=== PATIENT | female | born 2000 | race Caucasian/White ===

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

== ENCOUNTER 2021-01-20 09:44 | Outpatient (REF) | payer MEDICAID, SELFPAY ==
--- NOTE | ~2021-01-20 | US_ITS ---
EXAMINATION: OBSTETRICAL ULTRASOUND, Follow up HISTORY: 20-year-old at the 28.4 weeks of gestation Single umbilical artery COMPARISON: 12/16/2020 TECHNIQUE: Real time transabdominal imaging with color and M-mode Doppler. PRESENTATION: Breech PLACENTA LOCATION: Anterior without previa AMNIOTIC FLUID: Within normal limits MEASUREMENTS: 1. Biparietal Diameter: 7.3 cm; 29.2 wks 2. Head Circumference: 27.8 cm; 30.4 wks 3. Abdominal Circumference: 23.1 cm; 27.4 wks 4. Femur Length: 5.1 cm; 27.4 wks 5. Heart Rate: 136 beats per minute WEIGHT: EFW: 1136 grams (2 lbs 8 oz) -- 15 %. Two-vessel cord. UA Doppler S/D: 2.6 GESTATIONAL AGE: 1. Established GA: 28.4 wks 2. GA from [facility]: 19.6 wks ESTIMATED DATE OF DELIVERY: 1. Established SANDRINE: 04/10/2021 2. SANDRINE from [facility]: 04/08/2021 US/US OB velocimetry umbilical ar IMPRESSION: 1. A single active fetus is in vertex presentation 2. Two-vessel cord 3. Size equals dates, EFW corresponds to 15th percentile. There has been the slightly less than expected interval growth. 4. Normal amniotic fluid index 5. Normal UA Doppler study. I reviewed today's findings and the informed her that there has been slightly less than expected interval growth. Reviewed the limitations of ultrasound and estimating weights. Because of increased the incidence of IUGR in the setting of two-vessel cord, a follow-up in approximately 4 weeks is recommended (scheduled). Thank you very much for this referral. Total time 30 minutes. The time spent was devoted to counseling the patient about the disease and diagnosis, coordinating care including reviewing her records, pertinent lab data and studies, as well as discussing diagnostic evaluation and workup, plan therapeutic interventions and future disposition of care. This includes any additional research needed to obtain further information in formulating the plan of care of this patient. This note was generated with a voice recognition program. Please excuse any errors which may have been overlooked during my review of this note. Sometimes these errors may affect the content or meaning of a given sentence.
--- NOTE | ~2021-01-20 | US_ITS ---
EXAMINATION: OBSTETRICAL ULTRASOUND, Follow up HISTORY: 20-year-old at the 28.4 weeks of gestation Single umbilical artery COMPARISON: 12/16/2020 TECHNIQUE: Real time transabdominal imaging with color and M-mode Doppler. PRESENTATION: Breech PLACENTA LOCATION: Anterior without previa AMNIOTIC FLUID: Within normal limits MEASUREMENTS: 1. Biparietal Diameter: 7.3 cm; 29.2 wks 2. Head Circumference: 27.8 cm; 30.4 wks 3. Abdominal Circumference: 23.1 cm; 27.4 wks 4. Femur Length: 5.1 cm; 27.4 wks 5. Heart Rate: 136 beats per minute WEIGHT: EFW: 1136 grams (2 lbs 8 oz) -- 15 %. Two-vessel cord. UA Doppler S/D: 2.6 GESTATIONAL AGE: 1. Established GA: 28.4 wks 2. GA from [facility]: 19.6 wks ESTIMATED DATE OF DELIVERY: 1. Established SANDRINE: 04/10/2021 2. SANDRINE from [facility]: 04/08/2021 US/US OB follow up IMPRESSION: 1. A single active fetus is in vertex presentation 2. Two-vessel cord 3. Size equals dates, EFW corresponds to 15th percentile. There has been the slightly less than expected interval growth. 4. Normal amniotic fluid index 5. Normal UA Doppler study. I reviewed today's findings and the informed her that there has been slightly less than expected interval growth. Reviewed the limitations of ultrasound and estimating weights. Because of increased the incidence of IUGR in the setting of two-vessel cord, a follow-up in approximately 4 weeks is recommended (scheduled). Thank you very much for this referral. Total time 30 minutes. The time spent was devoted to counseling the patient about the disease and diagnosis, coordinating care including reviewing her records, pertinent lab data and studies, as well as discussing diagnostic evaluation and workup, plan therapeutic interventions and future disposition of care. This includes any additional research needed to obtain further information in formulating the plan of care of this patient. This note was generated with a voice recognition program. Please excuse any errors which may have been overlooked during my review of this note. Sometimes these errors may affect the content or meaning of a given sentence.
== END 2021-01-20 09:45 | disposition home or self-care (01) ==
LOC: HO.US 09:44
PROVIDERS: Visit Provider Advanced Practice Midwife
DX: O26.893 Other specified pregnancy related conditions, third trimester (principal); Q27.0 Congenital absence and hypoplasia of umbilical artery; Z3A.28 28 weeks gestation of pregnancy
CPT/HCPCS: 76816; 76820

== ENCOUNTER → 2021-02-01 15:17 | Outpatient (BNVA) | payer MEDICAID, SELFPAY | PROVIDERS: Visit Provider Advanced Practice Midwife | DX: Z34.03 Encounter for supervision of normal first pregnancy, third trimester (principal); Z3A.30 30 weeks gestation of pregnancy; Q27.0 Congenital absence and hypoplasia of umbilical artery | CPT/HCPCS: 81003; 99212 ==

== ENCOUNTER 2021-02-17 11:35 | Outpatient (REF) | payer MEDICAID, SELFPAY ==
--- NOTE | ~2021-02-17 | US_ITS ---
EXAMINATION: OBSTETRICAL ULTRASOUND, Follow up HISTORY: A 20-year-old at the 32.4 weeks of gestation Size less than dates Two-vessel cord COMPARISON: 01/20/2021 TECHNIQUE: Real time transabdominal imaging with color and M-mode Doppler. PRESENTATION: Vertex PLACENTA LOCATION: Anterior without previa AMNIOTIC FLUID: OZIEL 13.9 cm MEASUREMENTS: 1. Biparietal Diameter: 8.5 cm; 34.1 wks 2. Head Circumference: 32.0 cm; 36.1 wks 3. Abdominal Circumference: 26.7 cm; 30.6 wks 4. Femur Length: 5.7 cm; 29.6 wks 5. Heart Rate: 142 beats per minute WEIGHT: EFW: 1728 grams (3 lbs 13 oz) -- 10 %. BIOPHYSICAL PROFILE: Motion: 2 Tone: 2 Breathin Amniotic Fluid: 2 Total score: 8/8 Two-vessel cord was noted. The views of the posterior fossa, lateral ventricles, four-chamber view of the heart, stomach, bladder and kidneys were within normal limits. UA Doppler: SD 2.4 GESTATIONAL AGE: 1. Established GA: 32.4 wks 2. GA from [facility]: 32.6 wks ESTIMATED DATE OF DELIVERY: 1. Established SANDRINE: 04/10/2021 2. SANDRINE from [facility]: 04/08/2021 US/US OB follow up IMPRESSION: 1. A single active fetus is in vertex presentation 2. Size equals dates, EFW corresponds to 10th percentile. Compared to prior exam, there has been slightly less than expected interval growth 3. Two-vessel cord 4. Reassuring biophysical profile with normal amniotic fluid volume 5. Normal SD ratio in the umbilical artery I reviewed today's findings and informed her that there has been the slightly less than expected interval growth. We discussed the limitations of ultrasound and estimating weights. At this time it is unclear if the fetus is constitutionally small but healthy and is growing to her full genetic potential or is being affected by the two-vessel cord. The surveillance is reassuring. Recommended beginning weekly BPP, NST and Doppler evaluation. Repeat growth in 2 weeks. Thank you very much for this referral. Total time 30 minutes. The time spent was devoted to counseling the patient about the disease and diagnosis, coordinating care including reviewing her records, pertinent lab data and studies, as well as discussing diagnostic evaluation and workup, plan therapeutic interventions and future disposition of care. This includes any additional research needed to obtain further information in formulating the plan of care of this patient. This note was generated with a voice recognition program. Please excuse any errors which may have been overlooked during my review of this note. Sometimes these errors may affect the content or meaning of a given sentence.
--- NOTE | ~2021-02-17 | US_ITS ---
EXAMINATION: OBSTETRICAL ULTRASOUND, Follow up HISTORY: A 20-year-old at the 32.4 weeks of gestation Size less than dates Two-vessel cord COMPARISON: 01/20/2021 TECHNIQUE: Real time transabdominal imaging with color and M-mode Doppler. PRESENTATION: Vertex PLACENTA LOCATION: Anterior without previa AMNIOTIC FLUID: OZIEL 13.9 cm MEASUREMENTS: 1. Biparietal Diameter: 8.5 cm; 34.1 wks 2. Head Circumference: 32.0 cm; 36.1 wks 3. Abdominal Circumference: 26.7 cm; 30.6 wks 4. Femur Length: 5.7 cm; 29.6 wks 5. Heart Rate: 142 beats per minute WEIGHT: EFW: 1728 grams (3 lbs 13 oz) -- 10 %. BIOPHYSICAL PROFILE: Motion: 2 Tone: 2 Breathin Amniotic Fluid: 2 Total score: 8/8 Two-vessel cord was noted. The views of the posterior fossa, lateral ventricles, four-chamber view of the heart, stomach, bladder and kidneys were within normal limits. UA Doppler: SD 2.4 GESTATIONAL AGE: 1. Established GA: 32.4 wks 2. GA from A: 32.6 wks ESTIMATED DATE OF DELIVERY: 1. Established SANDRINE: 04/10/2021 2. SANDRINE from [facility]: 04/08/2021 US/US OB velocimetry umbilical ar IMPRESSION: 1. A single active fetus is in vertex presentation 2. Size equals dates, EFW corresponds to 10th percentile. Compared to prior exam, there has been slightly less than expected interval growth 3. Two-vessel cord 4. Reassuring biophysical profile with normal amniotic fluid volume 5. Normal SD ratio in the umbilical artery I reviewed today's findings and informed her that there has been the slightly less than expected interval growth. We discussed the limitations of ultrasound and estimating weights. At this time it is unclear if the fetus is constitutionally small but healthy and is growing to her full genetic potential or is being affected by the two-vessel cord. The surveillance is reassuring. Recommended beginning weekly BPP, NST and Doppler evaluation. Repeat growth in 2 weeks. Thank you very much for this referral. Total time 30 minutes. The time spent was devoted to counseling the patient about the disease and diagnosis, coordinating care including reviewing her records, pertinent lab data and studies, as well as discussing diagnostic evaluation and workup, plan therapeutic interventions and future disposition of care. This includes any additional research needed to obtain further information in formulating the plan of care of this patient. This note was generated with a voice recognition program. Please excuse any errors which may have been overlooked during my review of this note. Sometimes these errors may affect the content or meaning of a given sentence.
[2021-02-17 14:23] LABS: Hematocrit 32.4 % (37-47); Hemoglobin 10.4 g/dl (12.0-16.0); Mean Corpuscular HGB Conc 32.1 g/dl (31.0-35.0); Mean Corpuscular Hemoglobin 26.2 pg (27.0-33.0); Mean Corpuscular Volume 81.6 fL (80-98); Mean Platelet Volume 10.2 fL (9.4-12.3); Platelet Count 202 X10*3/uL (160-400); Red Blood Count 3.97 X10*6/uL (4.20-5.50); Red Cell Distribution Width 12.3 % (11.0-16.0); White Blood Count 10.6 X10*3/uL (4.8-10.8)
[2021-02-17 14:41] LABS: Glucose 1 Hour PP 50gm Dose 156 mg/dL (60-140)
[2021-02-20 09:30] LABS: Syphilis Screen Nonreactive (Nonreactive)
== END 2021-02-17 11:36 | disposition home or self-care (01) ==
LOC: HO.US 11:35
PROVIDERS: Advanced Practice Midwife; Visit Provider Advanced Practice Midwife
DX: O99.013 Anemia complicating pregnancy, third trimester (principal); O26.893 Other specified pregnancy related conditions, third trimester; Q27.0 Congenital absence and hypoplasia of umbilical artery; Z3A.32 32 weeks gestation of pregnancy
CPT/HCPCS: 36415; 76816; 76820; 81003; 85027; 86780; 99212

== ENCOUNTER 2021-02-24 11:22 | Outpatient (REF) | payer MEDICAID, SELFPAY ==
--- NOTE | ~2021-02-24 | US_ITS ---
EXAMINATION: US OBSTETRICAL (BIOPHYSICAL PROFILE) CLINICAL INFORMATION: 20-year-old at 33.4 weeks of gestation Two-vessel cord FGR COMPARISON: 02/17/2021 TECHNIQUE: Biophysical profile is performed over 30 minutes with assessment of breathing, gross body movement, tone, and qualitative amniotic fluid volume. FINDINGS: POSITION: Cephalic PLACENTA: Anterior without previa AMNIOTIC FLUID INDEX: 16.1 cm CARDIAC ACTIVITY: 130 beats per minute BIOPHYSICAL PROFILE: Motion: 2 Tone: 2 Breathin Amniotic Fluid: 2 The total biophysical score is 8/8 UA Doppler showed SD ratio of 2.1. This is within normal limits and stable. US/US OB biophysical profile IMPRESSION: 1. Single intrauterine gestation in vertex position. 2. Reassuring BPP and OZIEL 3. Normal SD ratio in the umbilical artery. Thank you for allowing me to participate in her care. Continue weekly monitoring. This note was generated with a voice recognition program. Please excuse any errors which may have been overlooked during my review of this note. Sometimes these errors may affect the content or meaning of a given sentence.
--- NOTE | ~2021-02-24 | US_ITS ---
EXAMINATION: US OBSTETRICAL (BIOPHYSICAL PROFILE) CLINICAL INFORMATION: 20-year-old at 33.4 weeks of gestation Two-vessel cord FGR COMPARISON: 02/17/2021 TECHNIQUE: Biophysical profile is performed over 30 minutes with assessment of breathing, gross body movement, tone, and qualitative amniotic fluid volume. FINDINGS: POSITION: Cephalic PLACENTA: Anterior without previa AMNIOTIC FLUID INDEX: 16.1 cm CARDIAC ACTIVITY: 130 beats per minute BIOPHYSICAL PROFILE: Motion: 2 Tone: 2 Breathin Amniotic Fluid: 2 The total biophysical score is 8/8 UA Doppler showed SD ratio of 2.1. This is within normal limits and stable. US/US OB velocimetry umbilical ar IMPRESSION: 1. Single intrauterine gestation in vertex position. 2. Reassuring BPP and OZIEL 3. Normal SD ratio in the umbilical artery. Thank you for allowing me to participate in her care. Continue weekly monitoring. This note was generated with a voice recognition program. Please excuse any errors which may have been overlooked during my review of this note. Sometimes these errors may affect the content or meaning of a given sentence.
== END 2021-02-24 11:23 | disposition home or self-care (01) ==
LOC: HO.US 11:22
PROVIDERS: Visit Provider Advanced Practice Midwife
DX: O99.013 Anemia complicating pregnancy, third trimester (principal); O99.810 Abnormal glucose complicating pregnancy; O26.893 Other specified pregnancy related conditions, third trimester; Z3A.33 33 weeks gestation of pregnancy
CPT/HCPCS: 76819; 76820

== ENCOUNTER → 2021-03-01 11:48 | Outpatient (BNVA) | payer MEDICAID, SELFPAY | PROVIDERS: Visit Provider Advanced Practice Midwife | DX: O36.5930 Maternal care for other known or suspected poor fetal growth, third trimester, not applicable or unspecified (principal); Z3A.34 34 weeks gestation of pregnancy | CPT/HCPCS: 59025; 81003; 99212 ==

== ENCOUNTER 2021-03-03 11:40 | Outpatient (REF) | payer MEDICAID, SELFPAY ==
--- NOTE | ~2021-03-03 | US_ITS ---
EXAMINATION: OBSTETRICAL ULTRASOUND, Follow up HISTORY: 20-year-old at 34.2 weeks of gestation Size less than dates Two-vessel cord COMPARISON: 02/24/2021 TECHNIQUE: Real time transabdominal imaging with color and M-mode Doppler. PRESENTATION: Vertex PLACENTA LOCATION: Anterior without previa AMNIOTIC FLUID: OZIEL 13.0 cm MEASUREMENTS: 1. Biparietal Diameter: 8.7 cm; 35.3 wks 2. Head Circumference: 31.9 cm; 36.0 wks 3. Abdominal Circumference: 28.7 cm; 32.6 wks 4. Femur Length: 6.3 cm; 32.4 wks 5. Heart Rate: 155 beats per minute Two-vessel cord was again noted. The views of the posterior fossa, lateral ventricles, four-chamber view of the heart, stomach, bladder, kidneys are within normal limits. WEIGHT: EFW: 2142 grams (4 lbs 12 oz) -- 13 %. BIOPHYSICAL PROFILE: Motion: 2 Tone: 2 Breathin Amniotic Fluid: 2 Total score: 8/8 UA Doppler showed S/D ratio of 2.0 GESTATIONAL AGE: 1. Established GA: 34.2 wks 2. GA from [facility]: 34.2 wks ESTIMATED DATE OF DELIVERY: 1. Established SANDRINE: 04/10/2021 2. SANDRINE from [facility]: 04/12/2021 US/US OB velocimetry umbilical ar IMPRESSION: 1. A single active fetus is in vertex presentation 2. Size equals dates, EFW corresponds to 13th percentile. However compared to prior exam, this represents an appropriate interval growth 3. Two-vessel cord 4. Reassuring biophysical profile with normal amniotic fluid index 5. Normal SD ratio in the umbilical artery She had a prolonged NST on Saturday for intermittent variable decelerations. According to her, she was monitored for nearly 4 hours at the [facility]. She is to continue weekly NST and BPP as well as Doppler evaluation. In addition, she was advised to monitor kick counts. Thank you very much for this referral. Total time 30 minutes. The time spent was devoted to counseling the patient about the disease and diagnosis, coordinating care including reviewing her records, pertinent lab data and studies, as well as discussing diagnostic evaluation and workup, plan therapeutic interventions and future disposition of care. This includes any additional research needed to obtain further information in formulating the plan of care of this patient. This note was generated with a voice recognition program. Please excuse any errors which may have been overlooked during my review of this note. Sometimes these errors may affect the content or meaning of a given sentence.
--- NOTE | ~2021-03-03 | US_ITS ---
EXAMINATION: OBSTETRICAL ULTRASOUND, Follow up HISTORY: 20-year-old at 34.2 weeks of gestation Size less than dates Two-vessel cord COMPARISON: 02/24/2021 TECHNIQUE: Real time transabdominal imaging with color and M-mode Doppler. PRESENTATION: Vertex PLACENTA LOCATION: Anterior without previa AMNIOTIC FLUID: OZIEL 13.0 cm MEASUREMENTS: 1. Biparietal Diameter: 8.7 cm; 35.3 wks 2. Head Circumference: 31.9 cm; 36.0 wks 3. Abdominal Circumference: 28.7 cm; 32.6 wks 4. Femur Length: 6.3 cm; 32.4 wks 5. Heart Rate: 155 beats per minute Two-vessel cord was again noted. The views of the posterior fossa, lateral ventricles, four-chamber view of the heart, stomach, bladder, kidneys are within normal limits. WEIGHT: EFW: 2142 grams (4 lbs 12 oz) -- 13 %. BIOPHYSICAL PROFILE: Motion: 2 Tone: 2 Breathin Amniotic Fluid: 2 Total score: 8/8 UA Doppler showed S/D ratio of 2.0 GESTATIONAL AGE: 1. Established GA: 34.2 wks 2. GA from AUA: 34.2 wks ESTIMATED DATE OF DELIVERY: 1. Established SANDRINE: 04/10/2021 2. SANDRINE from [facility]: 04/12/2021 US/US OB follow up IMPRESSION: 1. A single active fetus is in vertex presentation 2. Size equals dates, EFW corresponds to 13th percentile. However compared to prior exam, this represents an appropriate interval growth 3. Two-vessel cord 4. Reassuring biophysical profile with normal amniotic fluid index 5. Normal SD ratio in the umbilical artery She had a prolonged NST on Saturday for intermittent variable decelerations. According to her, she was monitored for nearly 4 hours at the [facility]. She is to continue weekly NST and BPP as well as Doppler evaluation. In addition, she was advised to monitor kick counts. Thank you very much for this referral. Total time 30 minutes. The time spent was devoted to counseling the patient about the disease and diagnosis, coordinating care including reviewing her records, pertinent lab data and studies, as well as discussing diagnostic evaluation and workup, plan therapeutic interventions and future disposition of care. This includes any additional research needed to obtain further information in formulating the plan of care of this patient. This note was generated with a voice recognition program. Please excuse any errors which may have been overlooked during my review of this note. Sometimes these errors may affect the content or meaning of a given sentence.
== END 2021-03-03 11:41 | disposition home or self-care (01) ==
LOC: HO.US 11:40
PROVIDERS: Visit Provider Advanced Practice Midwife
DX: O99.019 Anemia complicating pregnancy, unspecified trimester (principal); O99.810 Abnormal glucose complicating pregnancy; Z3A.00 Weeks of gestation of pregnancy not specified
CPT/HCPCS: 76816; 76820

== ENCOUNTER 2021-03-06 11:54 | Outpatient (REF) | payer MEDICAID, SELFPAY ==
[2021-03-06 13:26] LABS: Glucose 1 Hour 128 mg/dL
[2021-03-06 15:04] LABS: Glucose 2 Hour 131 mg/dL
[2021-03-06 15:53] LABS: Glucose 3 Hour 110 mg/dL
[2021-03-06 17:52] LABS: Glucose Fasting 88 mg/dL (60-99)
== END 2021-03-06 11:55 | disposition home or self-care (01) ==
LOC: HO.LAB 11:54
PROVIDERS: Visit Provider Advanced Practice Midwife
DX: O99.019 Anemia complicating pregnancy, unspecified trimester (principal); O26.899 Other specified pregnancy related conditions, unspecified trimester; O99.810 Abnormal glucose complicating pregnancy; Q27.0 Congenital absence and hypoplasia of umbilical artery
CPT/HCPCS: 36415; 82951

== ENCOUNTER → 2021-03-07 13:14 | Outpatient (BNVA) | payer MEDICAID, SELFPAY | PROVIDERS: Visit Provider Advanced Practice Midwife | DX: O69.89X0 Labor and delivery complicated by other cord complications, not applicable or unspecified (principal); O36.5930 Maternal care for other known or suspected poor fetal growth, third trimester, not applicable or unspecified; Q27.0 Congenital absence and hypoplasia of umbilical artery; O99.810 Abnormal glucose complicating pregnancy; O99.013 Anemia complicating pregnancy, third trimester; D64.9 Anemia, unspecified; O36.8330 Maternal care for abnormalities of the fetal heart rate or rhythm, third trimester, not applicable or unspecified; Z3A.35 35 weeks gestation of pregnancy | CPT/HCPCS: 59025; 81003; 99212 ==

== ENCOUNTER 2021-03-16 13:17 | Outpatient (REF) | payer MEDICAID, SELFPAY ==
[2021-03-17 04:30] LABS: CT PCR NOT DETECTED (Not Detect.); NG PCR NOT DETECTED (Not Detect.)
== END 2021-03-16 13:18 | disposition home or self-care (01) ==
LOC: HO.LAB 13:17
PROVIDERS: Visit Provider Advanced Practice Midwife
DX: O36.5930 Maternal care for other known or suspected poor fetal growth, third trimester, not applicable or unspecified (principal); O47.00 False labor before 37 completed weeks of gestation, unspecified trimester
CPT/HCPCS: 59025; 87081; 87147; 87491; 87591; 99212

== ENCOUNTER 2021-03-24 09:10 | Outpatient (REF) | payer MEDICAID, SELFPAY ==
--- NOTE | ~2021-03-24 | US_ITS ---
EXAMINATION: OBSTETRICAL ULTRASOUND, Follow up HISTORY: 21-year-old at the 37.4 weeks of gestation Two-vessel cord Small for gestational COMPARISON: 03/03/2021 TECHNIQUE: Real time transabdominal imaging with color and M-mode Doppler. PRESENTATION: Vertex PLACENTA LOCATION: Anterior without previa AMNIOTIC FLUID: OZIEL 8.8 cm MEASUREMENTS: 1. Biparietal Diameter: 9.2 cm; 37.2 wks 2. Head Circumference: 33.6 cm; 38.4 wks 3. Abdominal Circumference: 31.0 cm; 35.0 wks 4. Femur Length: 6.7 cm; 34.3 wks 5. Heart Rate: 134 beats per minute WEIGHT: EFW: 2663 grams (5 lbs 14 oz) -- 11 %. Two-vessel cord is noted. Posterior fossa, lateral ventricles, four-chamber view of the heart, stomach, urinary bladder and kidneys are within normal limits. BIOPHYSICAL PROFILE: Motion: 2 Tone: 2 Breathin Amniotic Fluid: 2 Total score: 8/8 UA Doppler: SD 2.4 GESTATIONAL AGE: 1. Established GA: 37.4 wks 2. GA from AUA: 36.3 wks ESTIMATED DATE OF DELIVERY: 1. Established SANDRINE: 04/10/2021 2. SANDRINE from AUA: 04/18/2021 US/US OB velocimetry umbilical ar IMPRESSION: 1. A single active fetus is in vertex presentation 2. Size equals dates, EFW corresponds to 11 percentile. Compared to prior, this represents appropriate interval growth. 3. Reassuring BPP and the OZIEL 4. Normal SD on UA Doppler I reviewed today's findings and gave her reassurance. Even though the EFW still corresponds to 11 percentile, this represents an appropriate interval growth. testing as well as the UA Doppler were within normal limits. Given today's findings, suggest continuing expectant management until approximately 39 weeks of gestation. Thank you very much for this referral. Total time 30 minutes. The time spent was devoted to counseling the patient about the disease and diagnosis, coordinating care including reviewing her records, pertinent lab data and studies, as well as discussing diagnostic evaluation and workup, plan therapeutic interventions and future disposition of care. This includes any additional research needed to obtain further information in formulating the plan of care of this patient. This note was generated with a voice recognition program. Please excuse any errors which may have been overlooked during my review of this note. Sometimes these errors may affect the content or meaning of a given sentence.
== END 2021-03-24 09:11 | disposition home or self-care (01) ==
LOC: HO.US 09:10
PROVIDERS: Visit Provider Advanced Practice Midwife
DX: O36.5990 Maternal care for other known or suspected poor fetal growth, unspecified trimester, not applicable or unspecified (principal); O26.899 Other specified pregnancy related conditions, unspecified trimester; Q27.0 Congenital absence and hypoplasia of umbilical artery
CPT/HCPCS: 76816; 76820

== ENCOUNTER 2021-03-31 09:03 | Outpatient (REF) | payer MEDICAID, SELFPAY ==
--- NOTE | ~2021-03-31 | US_ITS ---
EXAMINATION: US OBSTETRICAL (BIOPHYSICAL PROFILE) CLINICAL INFORMATION: 21-year-old at 38.4 weeks of gestation Two-vessel cord Small for gestational age COMPARISON: 03/24/2021 TECHNIQUE: Biophysical profile is performed over 30 minutes with assessment of breathing, gross body movement, tone, and qualitative amniotic fluid volume. FINDINGS: POSITION: Cephalic PLACENTA: Anterior without previa AMNIOTIC FLUID INDEX: 5.9 cm, MVP 4.5 cm CARDIAC ACTIVITY: 133 beats per minute BIOPHYSICAL PROFILE: Motion: 2 Tone: 2 Breathin Amniotic Fluid: 2 The total biophysical score is 8/8 UA Doppler: S/D 1.9 US/US OB biophysical profile IMPRESSION: 1. Single intrauterine gestation in vertex position. 2. Reassuring BPP and OZIEL 3. Normal SD ratio in the umbilical artery I reviewed today's findings and gave her reassurance. Agree with current plan of induction of labor at approximately 39 weeks of gestation. Thank you for allowing me to participate in her care. Total time 20 minutes. The time spent was devoted to counseling the patient about the disease and diagnosis, coordinating care including reviewing her records, pertinent lab data and studies, as well as discussing diagnostic evaluation and workup, plan therapeutic interventions and future disposition of care. This includes any additional research needed to obtain further information in formulating the plan of care of this patient. This note was generated with a voice recognition program. Please excuse any errors which may have been overlooked during my review of this note. Sometimes these errors may affect the content or meaning of a given sentence.
--- NOTE | ~2021-03-31 | US_ITS ---
EXAMINATION: US OBSTETRICAL (BIOPHYSICAL PROFILE) CLINICAL INFORMATION: 21-year-old at 38.4 weeks of gestation Two-vessel cord Small for gestational age COMPARISON: 03/24/2021 TECHNIQUE: Biophysical profile is performed over 30 minutes with assessment of breathing, gross body movement, tone, and qualitative amniotic fluid volume. FINDINGS: POSITION: Cephalic PLACENTA: Anterior without previa AMNIOTIC FLUID INDEX: 5.9 cm, MVP 4.5 cm CARDIAC ACTIVITY: 133 beats per minute BIOPHYSICAL PROFILE: Motion: 2 Tone: 2 Breathin Amniotic Fluid: 2 The total biophysical score is 8/8 UA Doppler: S/D 1.9 US/US OB velocimetry umbilical ar IMPRESSION: 1. Single intrauterine gestation in vertex position. 2. Reassuring BPP and OZIEL 3. Normal SD ratio in the umbilical artery I reviewed today's findings and gave her reassurance. Agree with current plan of induction of labor at approximately 39 weeks of gestation. Thank you for allowing me to participate in her care. Total time 20 minutes. The time spent was devoted to counseling the patient about the disease and diagnosis, coordinating care including reviewing her records, pertinent lab data and studies, as well as discussing diagnostic evaluation and workup, plan therapeutic interventions and future disposition of care. This includes any additional research needed to obtain further information in formulating the plan of care of this patient. This note was generated with a voice recognition program. Please excuse any errors which may have been overlooked during my review of this note. Sometimes these errors may affect the content or meaning of a given sentence.
== END 2021-03-31 09:04 | disposition home or self-care (01) ==
LOC: HO.US 09:03
PROVIDERS: Visit Provider Advanced Practice Midwife
DX: O36.5930 Maternal care for other known or suspected poor fetal growth, third trimester, not applicable or unspecified (principal); Z3A.38 38 weeks gestation of pregnancy
CPT/HCPCS: 59025; 76819; 76820; 81003; 99212

== ENCOUNTER → 2021-04-18 10:01 | Outpatient (BNVA) | payer MEDICAID, SELFPAY | PROVIDERS: Visit Provider Advanced Practice Midwife | DX: Z39.2 Encounter for routine postpartum follow-up (principal); Z39.1 Encounter for care and examination of lactating mother; Z13.31 Encounter for screening for depression | CPT/HCPCS: 99212 ==

== ENCOUNTER 2021-07-18 05:59 | Emergency (ER) | payer MEDICAID, SELFPAY ==
[2021-07-18 06:04] VITALS: BP 130/80; PULSE 124
[2021-07-18 06:20] VITALS: BP 112/59; PULSE 115; RESP 20; TEMP 37.8; O2SAT 99; BMI 21.0
[2021-07-18 06:42] LABS: MANUAL DIFF FLAG NO
[2021-07-18 06:58] LABS: Alanine Aminotransferase 13 U/L (0-31); Alkaline Phosphatase 111 U/L (39-117); Anion Gap 14 (12-20); Aspartate Amino Transferase 19 U/L (5-31); Bilirubin Direct 0.2 mg/dL (0.0-0.5); Bilirubin Total 0.5 mg/dL (0.0-1.0); Blood Urea Nitrogen 9 mg/dL (9-16); Carbon Dioxide 23 mmol/L (22-29); Chloride 105 mmol/L (96-108); Creatinine Clr Calc Pharmacy 85.5; Estimated Glomerular Filt Rate > 60; Glucose Random 92 mg/dL (60-115); Lipase 13 U/L (8-78); Potassium 4.1 mmol/L (3.3-5.1); Sodium 138 mmol/L (135-145); Total Protein 6.9 g/dL (6.5-8.0)
[2021-07-18 06:59] LABS: Basophils Percent Auto 0.1 % (0-2); Hematocrit 41.8 % (37.0-47.0); Hemoglobin 13.2 g/dl (12.0-16.0); Imm Gran Abs Auto 0.03 X10*3/uL (0.00-0.03); Imm Gran Pct Auto 0.4 % (0.0-0.4); Lymphocytes Absolute Auto 0.6 X10*3/uL (1.2-4.9); Lymphocytes Percent Auto 7.9 % (20-40); Mean Corpuscular HGB Conc 31.6 g/dl (31.0-35.0); Mean Corpuscular Hemoglobin 25.2 pg (27.0-33.0); Mean Corpuscular Volume 79.9 fL (80.0-98.0); Mean Platelet Volume 9.9 fL (9.4-12.3); Monocytes Absolute Auto 0.6 X10*3/uL (0.1-1.2); Monocytes Percent Auto 8.5 % (2-11); Neutrophils Absolute Auto 6.1 x10*3/uL (2.0-8.3); Neutrophils Percent Auto 83.1 % (45-73); Platelet Count 267 X10*3/uL (160-400); Red Blood Count 5.23 X10*6/uL (4.20-5.50); Red Cell Distribution Width 12.4 % (11.0-16.0); White Blood Count 7.4 X10*3/uL (4.8-10.8)
[2021-07-18 07:00] LABS: COVID-19 Test Negative (Negative)
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
[2021-07-18 08:40] VITALS: BP 97/44; PULSE 114; RESP 18; TEMP 38.3; O2SAT 96
[2021-07-18] MEDS: ondansetron HCL 4 MG/2 ML VIAL IVPUSH (08:47)
[2021-07-18] MEDS: Ibuprofen 400 MG TABLET PO (08:47)
[2021-07-18] MEDS: 0.9 % Sodium Chloride 1,000 ML 999 ML IV (08:48)
[2021-07-18] MEDS: Acetaminophen 325 MG TABLET 650 MG PO (09:56)
[2021-07-18] MEDS: Ketorolac Tromethamine 15 MG/ML VIAL IVPUSH (09:57)
[2021-07-18 10:17] LABS: Appearance Urine CLEAR; Color Urine YELLOW; Glucose Urine UA NEG (NEG); Leukocyte Esterase Urine NEG (NEG); Nitrite Urine NEG (NEG); PH 6.5 (5.0-8.0); Urine Blood NEG (NEG); Urine Ketones >=80 MG/DL (NEG); Urine Protein NEG (NEG-TRACE)
[2021-07-18 10:19] LABS: UPreg QC Valid YES; Urine Pregnancy NEGATIVE (NEGATIVE)
[2021-07-18 10:29] LABS: Influenza A PCR NEGATIVE (Negative); Influenza B PCR NEGATIVE (Negative); Resp Syncy Virus RNA Qual PCR NEGATIVE (Negative); SARS COV2 PCR INHOUSE NEGATIVE (Negative)
[2021-07-18 11:25] VITALS: BP 117/52; PULSE 94; RESP 16; TEMP 36.8; O2SAT 97
== END 2021-07-18 11:38 | disposition home or self-care (01) ==
PROVIDERS: Emergency Provider Student in an Organized Health Care Education/Training Program
DX: R11.2 Nausea with vomiting, unspecified (principal); M79.10 Myalgia, unspecified site; T50.B95A Adverse effect of other viral vaccines, initial encounter; Y92.019 Unspecified place in single-family (private) house as the place of occurrence of the external cause; Z20.822 Contact with and (suspected) exposure to COVID-19
CPT/HCPCS: 0241U; 36415; 80048; 80076; 81003; 81025; 83690; 85025; 87635; 96361; 96374; 96375; 99284; J1885; J2405

== ENCOUNTER 2021-09-08 00:43 | Emergency (ER) | payer MEDICAID, SELFPAY ==
--- NOTE | ~2021-09-08 | CT_ITS ---
EXAMINATION: CT HEAD WITHOUT CONTRAST CLINICAL INFORMATION: Fall. Headache. Dizziness. COMPARISON: None TECHNIQUE: Contiguous axial imaging was performed from the skull base to vertex without intravenous administration of contrast. This CT examination was performed using dose optimization techniques as appropriate, variously including the following: *Automated exposure control *Adjustment of mA and/or kV according to patient size (this includes techniques or standardized protocols for targeted exams where dose is matched to indication/reason for exam; i.e. extremities or head) *Use of iterative reconstruction technique DLP: 627 mGy-cm FINDINGS: No intrarenal hemorrhage, tumors or infarcts are noted. The ventricles and sulci are normal in size and configuration. No focal parenchymal lesions of the brain identified. The visualized orbits and globes are normal in appearance. No significant opacification of the visualized paranasal sinuses, mastoid air cells and middle ear cavities. CT/CT head/brain wo con IMPRESSION: *No acute intracranial abnormalities.
[2021-09-08 00:52] VITALS: BP 117/74; PULSE 83; O2SAT 99
[2021-09-08 00:55] VITALS: BP 112/61; PULSE 77; RESP 20; TEMP 36.5; O2SAT 98; BMI 21.9
[2021-09-08 01:30] VITALS: BP 109/61
--- NOTE | 2021-09-08 01:30 | ECG_ITS ---
Test Reason : SYNSCOPE Blood Pressure : / mmHG Vent. Rate : 067 BPM Atrial Rate : 067 BPM P-R Int : 198 ms QRS Dur : 096 ms QT Int : 402 ms P-R-T Axes : 080 073 057 degrees QTc Int : 424 ms Normal sinus rhythm with sinus arrhythmia Incomplete right bundle branch block Borderline ECG No previous ECGs available Referred By: Marly Anthony Electronically Signed By:LEANN AMAYA
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
[2021-09-08 01:54] LABS: MANUAL DIFF FLAG NO
[2021-09-08 01:56] LABS: Basophils Percent Auto 0.7 % (0-2); Eosinophils Absolute Auto 0.1 X10*3/uL (0.0-0.4); Hematocrit 41.8 % (37.0-47.0); Hemoglobin 13.3 g/dl (12.0-16.0); Imm Gran Abs Auto 0.01 X10*3/uL (0.00-0.03); Imm Gran Pct Auto 0.2 % (0.0-0.4); Lymphocytes Absolute Auto 2.1 X10*3/uL (1.2-4.9); Lymphocytes Percent Auto 34.4 % (20-40); Mean Corpuscular HGB Conc 31.8 g/dl (31.0-35.0); Mean Corpuscular Hemoglobin 25.6 pg (27.0-33.0); Mean Corpuscular Volume 80.5 fL (80.0-98.0); Mean Platelet Volume 10.6 fL (9.4-12.3); Monocytes Absolute Auto 0.8 X10*3/uL (0.1-1.2); Monocytes Percent Auto 12.6 % (2-11); Neutrophils Percent Auto 50.1 % (45-73); Platelet Count 219 X10*3/uL (160-400); Red Blood Count 5.19 X10*6/uL (4.20-5.50); Red Cell Distribution Width 14.1 % (11.0-16.0)
[2021-09-08] MEDS: 0.9 % Sodium Chloride 1,000 ML 999 ML IVCONT (02:01)
[2021-09-08 02:02] VITALS: BP 109/66; PULSE 69; RESP 12; O2SAT 100
[2021-09-08 02:07] LABS: Appearance Urine CLEAR; Color Urine YELLOW; Glucose Urine UA NEG (NEG); Leukocyte Esterase Urine NEG (NEG); Nitrite Urine NEG (NEG); PH 7.5 (5.0-8.0); Specific Gravity - Urine 1.015 (1.005-1.025); Urine Blood NEG (NEG); Urine Ketones NEG (NEG); Urine Protein NEG (NEG-TRACE)
[2021-09-08 02:08] LABS: D Dimer High Sensitivity 227 NG/ML
[2021-09-08 02:13] LABS: COVID-19 Test Negative (Negative); IDNOW Serial# 55D5AD1C; Influenza A Negative (Negative); Influenza B2 Negative (Negative)
[2021-09-08 02:14] LABS: Troponin-I High Sensitivity < 3.5 ng/L (<3.5-17.0)
[2021-09-08 02:15] LABS: HCG Quantitative < 2 mIU/mL
[2021-09-08 02:20] LABS: Amphetamine Screen Urine Not Detected (Not Detect); Barbiturates, Urine Not Detected (Not Detect); Benzodiazepines Screen Urine Not Detected (Not Detect); Cannabinoid Screen Urine Not Detected (Not Detect); Cocaine Screen Urine Not Detected (Not Detect); Fentanyl, urine Not Detected (Not Detect); Opiate Screen Urine Not Detected (Not Detect); Phencyclidine Screen Urine Not Detected (Not Detect)
[2021-09-08 03:05] LABS: Alanine Aminotransferase 11 U/L (0-31); Alkaline Phosphatase 114 U/L (39-117); Anion Gap 11 (12-20); Aspartate Amino Transferase 17 U/L (5-31); Bilirubin Direct 0.2 mg/dL (0.0-0.5); Bilirubin Total 0.4 mg/dL (0.0-1.0); Blood Urea Nitrogen 14 mg/dL (9-16); Calcium 9.2 mg/dL (8.4-10.2); Carbon Dioxide 24 mmol/L (22-29); Chloride 108 mmol/L (96-108); Estimated Glomerular Filt Rate > 60; Glucose Random 100 mg/dL (60-115); Potassium 3.8 mmol/L (3.3-5.1); Sodium 139 mmol/L (135-145); Total Protein 6.8 g/dL (6.5-8.0)
[2021-09-08 03:11] VITALS: BP 112/81
[2021-09-08 03:40] VITALS: BP 117/77; PULSE 84; RESP 14; O2SAT 99
== END 2021-09-08 04:02 | disposition home or self-care (01) ==
PROVIDERS: Emergency Provider Emergency Medicine
DX: I95.1 Orthostatic hypotension (principal); Z20.822 Contact with and (suspected) exposure to COVID-19; Z79.899 Other long term (current) drug therapy
CPT/HCPCS: 36415; 70450; 80048; 80076; 80307; 81003; 84484; 84702; 85025; 85379; 87502; 87635; 93005; 96360; 99284

== ENCOUNTER 2024-03-27 13:33 | Outpatient (REF) | payer MEDICAID, SELFPAY ==
[2024-03-30 19:39] LABS: TS Negative Control Passed; TS Panel A 0; TS Panel B 1; TS Positive Control Passed; TSpotTB Negative (Negative)
== END 2024-03-27 13:34 | disposition home or self-care (01) ==
LOC: HO.HHCL 13:33
PROVIDERS: Visit Provider General Practice
DX: Z00.00 Encounter for general adult medical examination without abnormal findings (principal)
CPT/HCPCS: 36415; 86481